=== PATIENT | male | born 1995 | race Caucasian/White ===

== ENCOUNTER 2022-07-30 11:23 | Emergency (ER) | payer OTHER, SELFPAY ==
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
[2022-07-30 11:25] VITALS: BP 131/78; PULSE 100; RESP 20; O2SAT 100
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
--- NOTE | 2022-07-30 12:07 | PC.NURSE ---
Spoke with pharmacy -- confirmed dilution for Cefazolin IV. Reconstitute with sterile water 2.5 mL, inject over 3-5 minutes.
--- NOTE | 2022-07-30 12:16 | PC.NURSE ---
Pt refused morphine.
[2022-07-30] MEDS: TETANUS,DIPHTHERIA,AC PERTUSSIS ADULT (0.5 ML) BOOSTRIX IM (12:17)
[2022-07-30] MEDS: ceFAZolin SODIUM 1 GM VIAL IV PUSH (12:17)
--- NOTE | 2022-07-30 12:21 | PC.NURSE ---
Pt unsure, still deciding if he would like or need zofran and morphine. Explained risks and benefits. Will continue to monitor
[2022-07-30] MEDS: ONDANSETRON INJ 4 MG/2 ML VIAL IV PUSH (13:15)
[2022-07-30] MEDS: MORPHINE SULFATE (*CRX) 4 MG/ML INJ IV PUSH (13:16)
--- NOTE | 2022-07-30 13:18 | PC.NURSE ---
RANJEET Núñez at bedside cleaning wound, Pt given zofran and morphine at this time in anticipation of packing.
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
[2022-07-30 14:58] VITALS: BP 119/76; PULSE 87; RESP 18; TEMP 36.9; O2SAT 100
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
--- NOTE | 2022-07-30 15:06 | PC.NURSE ---
Pt given disk of xrays, instructed to take to follow-up
== END 2022-07-30 14:58 | disposition home or self-care (01) ==
PROVIDERS: Emergency Provider Physician Assistant; PCP Family Medicine
DX: S61.431A Puncture wound without foreign body of right hand, initial encounter (principal); W32.0XXA Accidental handgun discharge, initial encounter; Z23 Encounter for immunization
CPT/HCPCS: 73130; 90471; 90715; 96374; 96375; 99284; J0131; J0690; J2270; J2405